=== PATIENT | male | born 1970 | race Caucasian/White ===

== ENCOUNTER 2020-10-11 06:53 | Inpatient (IN) | payer BC ==
[2020-10-11] MEDS ORDERED: ASPIRIN 81 MG PO STA (07:11)
[2020-10-11] MEDS ORDERED: NITROGLYCERIN SL TABS 0.4 MG TAB SUBLINGUAL STA (07:15)
--- NOTE | 2020-10-11 07:17 | ED ---
General Adult HPI - General Source: patient Mode of arrival: wheelchair Limitations: no limitations <Jamarcus Castro - Last Filed: 10/11/20 07:26> <Alfreda Rodgers - Last Filed: 10/11/20 07:38> - General Chief complaint: Chest Pain Stated complaint: Chest Pain Time Seen by Provider: 10/11/20 07:05 - History of Present Illness Initial comments: Patient is a 50-year-old male presenting to emergency Department with complaints of chest pain that started this morning. He states it woke him out of sleep about 4-5am. States he lost his taste and smell last week, recent diagnosis of Covid. Denies any shortness of breath. Describes the pain as in the left side of his chest, nonradiating. He doesn't history of a cardiac stent. No nausea or vomiting, no abdominal pain. No recent fevers. He has no further complaints at this time. Slightly hypertensive on arrival at 163/85, rest of vitals normal. (Alfreda Rodgers) - Related Data Allergies Allergy/AdvReac Type Severity Reaction Status Date / Time No Known Allergies Allergy Verified 10/11/20 06:59 Review of Systems ROS Other: All systems not noted in ROS Statement are negative. <Jamarcus Castro - Last Filed: 10/11/20 07:26> ROS Other: All systems not noted in ROS Statement are negative. <Alfreda Rodgers - Last Filed: 10/11/20 07:38> ROS Statement: Those systems with pertinent positive or pertinent negative responses have been documented in the HPI. Past Medical History Past Medical History: No Reported History History of Any Multi-Drug Resistant Organisms: None Reported Past Surgical History: Heart Catheterization With Stent Past Psychological History: No Psychological Hx Reported Smoking Status: Never smoker Past Alcohol Use History: Occasional Past Drug Use History: None Reported <Jamarcus Castro - Last Filed: 10/11/20 07:26> General Exam Limitations: no limitations General appearance: alert Respiratory exam: Present: normal lung sounds bilaterally. Absent: chest wall tenderness Cardiovascular Exam: Present: regular rate, normal rhythm, normal heart sounds Expanded Peripheral pulses: 2+: Radial (R), Radial (L), Dorsalis Pedis (R), Dorsalis Pedis (L) Extremities exam: Absent: calf tenderness <Jamarcus Castro - Last Filed: 10/11/20 07:26> <Alfreda Rodgers - Last Filed: 10/11/20 07:38> - General Exam Comments Initial Comments: GENERAL: Patient is well-developed and well-nourished. Patient is nontoxic and in mild distress. HEAD: Atraumatic, normocephalic. EYES: Pupils equal round and reactive to light, extraocular movements intact, sclera anicteric, conjunctiva are normal. Eyelids were unremarkable. ENT: Nares patent, oropharynx clear without exudates. Moist mucous membranes. NECK: Normal range of motion, supple without lymphadenopathy or JVD. LUNGS: Unlabored respirations. Breath sounds clear to auscultation bilaterally and equal. No wheezes rales or rhonchi. HEART: Regular rate and rhythm without murmurs, rubs or gallops. ABDOMEN: Soft, nontender, normoactive bowel sounds. No guarding, no rebound. No masses appreciated. : Deferred MUSCULOSKELETAL: Normal extremities with adequate strength and normal range of motion, no pitting or edema. No clubbing or cyanosis. NEUROLOGICAL: Patient is alert and oriented x 3. Normal speech, normal gait. PSYCH: Normal mood, normal affect. SKIN: Warm, Dry, normal turgor, no rashes or lesions noted. (Alfreda Rodgers) Course <Jamarcus Castro - Last Filed: 10/11/20 07:26> Vital Signs 10/11/20 06:55 Temperature 98 F Pulse Rate 61 Respiratory 20 Rate Blood Pressure 163/85 O2 Sat by Pulse 100 Oximetry - Reevaluation(s) Reevaluation #1: 10/11/20 07:17 Case was discussed with Dr. Gonsalves who wants patient to go to the [facility]. Second EKG shows normal sinus rhythm with rate of 68. MI 136. QRS 90. QT 414. QTC 440. Normal axis. ST elevation. With depression aVL and V6. 10/11/20 07:27 Chest x-ray reviewed. Patient is gone to [facility] prior to heparin order. Dr. Bird has been paged for admission. (Jamarcus Castro) EKG Findings - EKG Comments: EKG Findings:: Normal sinus rhythm with rate of 66. MI 146. QRS 92. QT 410. QTc 429. Normal axis. Normal QRS. ST elevation in inferior. Some ST depression in aVL and V6. <Jamarcus Castro - Last Filed: 10/11/20 07:26> Medical Decision Making - Lab Data Result diagrams: 10/11/20 07:15 <Jamarcus Castro - Last Filed: 10/11/20 07:26> - Lab Data Result diagrams: 10/11/20 07:15 10/11/20 07:15 <lAfreda Rodgers - Last Filed: 10/11/20 07:38> - Medical Decision Making Patient is a 50-year-old male presenting with non-awaiting chest pain awoke him sleep about 2 hours prior to arrival. Does have a recent diagnosis of Covid. He was slightly hypertensive on arrival, no fevers. EKG showing ST segment elevation. STEMI alert was called. Patient went straight to cathodic protection technician. Case discussed in detail with Dr. Castro. (Alfreda Rodgers) - Lab Data Lab Results 10/11/20 10/11/20 10/11/20 Range/Units 07:15 07:15 07:15 WBC 10.5 (3.8-10.6) k/uL RBC 4.86 (4.30-5.90) m/uL Hgb 15.4 (13.0-17.5) gm/dL Hct 43.9 (39.0-53.0) % MCV 90.4 (80.0-100.0) fL MCH 31.7 (25.0-35.0) pg MCHC 35.1 (31.0-37.0) g/dL RDW 11.4 L (11.5-15.5) % Plt Count 408 (150-450) k/uL MPV 7.8 Neutrophils % 63 % Lymphocytes % 22 % Monocytes % 10 % Eosinophils % 2 % Basophils % 1 % Neutrophils # 6.6 (1.3-7.7) k/uL Lymphocytes # 2.3 (1.0-4.8) k/uL Monocytes # 1.1 H (0-1.0) k/uL Eosinophils # 0.2 (0-0.7) k/uL Basophils # 0.1 (0-0.2) k/uL PT 10.4 (9.0-12.0) sec INR 1.0 (<1.2) APTT 23.4 (22.0-30.0) sec Sodium 142 (137-145) mmol/L Potassium 3.8 (3.5-5.1) mmol/L Chloride 104 (98-107) mmol/L Carbon Dioxide 27 (22-30) mmol/L Anion Gap 11 mmol/L BUN 15 (9-20) mg/dL Creatinine 1.12 (0.66-1.25) mg/dL Est GFR (CKD-EPI)AfAm 88 (>60 ml/min/1.73 sqM) Est GFR (CKD-EPI)NonAf 77 (>60 ml/min/1.73 sqM) Glucose 141 H (74-99) mg/dL Calcium 9.5 (8.4-10.2) mg/dL Magnesium 1.9 (1.6-2.3) mg/dL Total Bilirubin 0.8 (0.2-1.3) mg/dL AST 31 (17-59) U/L ALT 23 (4-49) U/L Alkaline Phosphatase 91 (38-126) U/L Total Protein 7.6 (6.3-8.2) g/dL Albumin 4.6 (3.5-5.0) g/dL Critical Care Time Critical Care Time: Yes Total Critical Care Time: 20 (Patient presented with chest pain that woke her f rom sleep, EKG showed acute ST segment elevation. STEMI was called, patient was taken straight to cathodic protection technician.) <Alfreda Rodgers - Last Filed: 10/11/20 07:38> Disposition <Jamarcus Castro - Last Filed: 10/11/20 07:26> Decision Date: 10/11/20 Decision Time: 07:36 <Alfreda Rodgers - Last Filed: 10/11/20 07:38> Clinical Impression: ST elevation myocardial infarction (STEMI) Disposition: ADMITTED IP TO THIS HOSP Condition: Stable
[2020-10-11 07:25] LABS: Basophils # (A) 0.1 k/uL (0-0.2); Basophils % (A) 1 %; Eosinophils # (A) 0.2 k/uL (0-0.7); Eosinophils % (A) 2 %; HCT 43.9 % (39.0-53.0); HGB 15.4 gm/dL (13.0-17.5); Lymphocytes # (A) 2.3 k/uL (1.0-4.8); Lymphocytes % (A) 22 %; MCH 31.7 pg (25.0-35.0); MCHC 35.1 g/dL (31.0-37.0); MCV 90.4 fL (80.0-100.0); Mean Platelet Volume 7.8; Monocytes # (A) 1.1 k/uL (0-1.0); Monocytes % (A) 10 %; Neutrophils # (A) 6.6 k/uL (1.3-7.7); Neutrophils % (A) 63 %; Platelet Count 408 k/uL (150-450); RBC 4.86 m/uL (4.30-5.90); RDW 11.4 % (11.5-15.5); WBC 10.5 k/uL (3.8-10.6)
[2020-10-11] MEDS ORDERED: HEPARIN SODIUM 1,000 UN/ML (10ML VL) IV ONE (07:28)
[2020-10-11] MEDS ORDERED: HEPARIN SODIUM 1,000 UN/ML (10ML VL) IV PRN (07:28)
[2020-10-11] MEDS ORDERED: HEPARIN SOD,PORK IN 0.45% NACL 25,000 UNIT in 0.45% NACL 1 250ML.BAG IV SCH (07:30)
[2020-10-11] MEDS ORDERED: SODIUM CHLORIDE 0.9% 1,000 ML IV ONE (07:30)
[2020-10-11 07:33] LABS: Albumin 4.6 g/dL (3.5-5.0); Calcium 9.5 mg/dL (8.4-10.2); Magnesium 1.9 mg/dL (1.6-2.3); Potassium 3.8 mmol/L (3.5-5.1); Total Bilirubin 0.8 mg/dL (0.2-1.3); Total Protein 7.6 g/dL (6.3-8.2)
[2020-10-11 07:34] LABS: Partial Thromboplastin Time 23.4 sec (22.0-30.0); Prothrombin Time 10.4 sec (9.0-12.0)
[2020-10-11] MEDS ORDERED: fentaNYL (PF) 50 MCG/ML 2 ML AMP IV ONE (07:36)
[2020-10-11] MEDS: MIDAZOLAM 2 MG/2 ML VIAL IV ONE ×2 (07:40→07:47)
[2020-10-11] MEDS ORDERED: LIDOCAINE 1% INJ 10MG/ML (20 ML MDV) SQ ONE (07:40)
--- NOTE | 2020-10-11 07:52 | XR ---
EXAMINATION TYPE: XR chest 1V portable DATE OF EXAM: 10/11/2020 COMPARISON: NONE HISTORY: Chest pain TECHNIQUE: Single frontal view of the chest is obtained. FINDINGS: There is no focal air space opacity, pleural effusion, or pneumothorax seen. The cardiac silhouette size is within normal limits. The osseous structures are intact. IMPRESSION: No acute process.
[2020-10-11] MEDS ORDERED: TICAGRELOR 90 MG TAB PO ONE (07:57)
[2020-10-11] MEDS ORDERED: IOPAMIDOL-370 125ML BTL INJ ONE (08:15)
[2020-10-11] MEDS ORDERED: IOPAMIDOL-370 100ML BTL INJ ONE ×2 (08:44→09:09)
[2020-10-11 09:31] LABS: Glucose,Whole Blood 119 mg/dL (75-99)
[2020-10-11] MEDS ORDERED: RX INFO: IV CONTRAST WAS GIVEN 1 EACH MISC MISCELLANE PRN (09:32)
[2020-10-11] MEDS ORDERED: MAG HYDROX/AL HYDROX/SIMETH 30 ML CUP PO PRN (09:32)
[2020-10-11] MEDS ORDERED: NITROGLYCERIN SL TABS 0.4 MG TAB SUBLINGUAL PRN (09:32)
[2020-10-11] MEDS ORDERED: ZOLPIDEM 5 MG TAB PO PRN (09:32)
[2020-10-11] MEDS ORDERED: ATROPINE SULFATE 0.1 MG/ML 10ML SYRINGE IV PRN (09:32)
[2020-10-11] MEDS ORDERED: SODIUM CHLORIDE 0.9% 1,000 ML IV SCH (09:45)
[2020-10-11 11:27] VITALS: BMI 21.6
--- NOTE | 2020-10-11 14:01 | CONS ---
CONSULTATION Mr. Rosales is a 50-year-old male with a known history of coronary artery disease status post percutaneous revascularization done at [facility] in 2013 who presented with symptoms of chest discomfort and evidence of ST-segment elevation involving the inferior wall. In view of that, Cardiology consultation was requested. The patient has no recent episode of chest discomfort until the last few days until this morning when he had the episode of severe chest discomfort, he was dyspneic with it. He denies any dizziness or palpitation. According to him, he has done reasonably well since his intervention in 2013 and has not seen his career center director recently. He is reasonably active physically without any symptoms. He has a history of hypertension. He is a nonsmoker. His lipid profile is not available to me. He was diagnosed with Covid 19 infection recently according to him and has not taking any medication recently. He cannot recall the names of medication he was supposed to be taking at home. REVIEW OF SYSTEMS: RESPIRATORY system: He has no history of documented asthma, emphysema or bronchitis. GI system: No recent GI bleeding. No peptic ulcer disease. system: No dysuria or hematuria. NERVOUS SYSTEM: No history of stroke or seizure. SOCIAL HISTORY: Patient is nonsmoker. He drinks alcohol socially according to him. PHYSICAL EXAMINATION: He is a 50-year-old male, alert, oriented, in no apparent distress. Blood pressure running in the 140s-160s with a heart rate in the 70s. HEAD: Normocephalic. Eyes sclerae anicteric. NECK: Good upstroke. No bruit. No jugular venous distention. LUNGS: Clear to auscultation. HEART: Regular rate and rhythm S1, S2. No S3. No S4. No murmur or rub. ABDOMEN: Soft, nontender, positive bowel sounds. No megaly. EXTREMITIES: No edema. Intact distal pulses. LAB DATA: Lab data revealed a hemoglobin of 15.4, BUN and creatinine 15 and 1.12. Potassium 3.8. Troponin 0.030. His EKG is consistent with an acute inferior myocardial infarction. IMPRESSION: 1. Acute inferior wall myocardial infarction. Patient with known history of coronary artery disease. 2. History of hypertension. 3. Prior stenting in 2013. 4. Recent infection with Covid 19. RECOMMENDATIONS: I have recommended proceeding with coronary angiography. The procedure as well as the risks and the complications were discussed with the patient who is in full understanding and agreement. Thank you for this consult. We will follow with you. MMODL / IJN: [id number] /
--- NOTE | 2020-10-11 14:04 | PTCA ---
PERCUTANEOUSTRANS CORORONARY ANGIOGRAPHY Mr. Rosales is a 50-year-old male with known history of coronary artery disease, who presented to the emergency room with an acute inferior myocardial infarction. In view of that, recommendation was made regarding cardiac catheterization. The procedure as well as the risks and the complications were discussed with the patient who is in full understanding and agreement. PROCEDURE: Patient was brought to labor employment associate in a fasting semi-sedated state after receiving fentanyl and Benadryl and achieving moderate conscious sedated state. Using Xylocaine anesthesia and Seldinger technique, a 6-Jamaican sheath was introduced in the right radial artery. Right coronary angiography performed using a 6-Jamaican FR4 guiding catheter. After cannulating the right coronary ostium, a 0.014 balanced medium weight J-wire with a super cross straight catheter were used to cross the total occlusion and position the wire distally. Subsequently, the microcatheter was removed and a 2.5 x 12 mm Trek balloon was advanced and 2 inflations at a maximum of 8 atmospheres were done. Following that, the balloon was removed and a 2.75 x 28 mm Xience Cristine stent was advanced, deployed and was dilated at 16 atmospheres. Following that, the balloon was removed and attempts to advance a 3.0 x 23 mm Xience Cristine stent proximal to the first stent were unsuccessful. At that point, the stent was removed and another 0.014 balanced medium weight J-wire was advanced next to the first one in a cal fashion and the 2.5 x 12 mm Trek balloon was advanced and inflations were done at the junction at maximum of 8 atmospheres. Following that, the balloon was removed and then the 3.0 x 23 mm Xience Cristine stent was advanced, deployed and was dilated at 16 atmospheres. Following that, a 3.0 x 15 mm NC Trek balloon was advanced and multiple inflations throughout the vessel to the stented segment were done at maximum of 12 atmospheres. Following that, the balloon was removed and a 3.0 x 18 mm Xience Cristine stent was deployed distal to the first stent and was dilated at 16 atmospheres. After the inflation, an inflation in the overlap segment was done at 16 atmospheres. Following that, the balloon was removed and a 3.0 x 15 mm Xience Cristine stent was deployed in the proximal segment and postdilated at 16 atmospheres. After the last inflation, after appropriate wait the balloon and the guidewire were withdrawn back in the guiding catheter. Images were obtained and repeated. Those images reveal stable successful stenting. At that point, the guiding catheter, the balloon and the guidewire guide were removed. Images of the left coronary system were performed. Of note, the patient received a total of 8000 units of intravenous heparin throughout the procedure. His ACT was followed. He also received intra-arterial verapamil. He was pain-free at the end procedure with resolution of the chest discomfort. RESULTS: Successful stenting of the mid right coronary artery with reduction of stenosis from 100% to 0%. RECOMMENDATIONS: Patient will be continued on aspirin, Brilinta, beta werner, PANTERA inhibitor, statin. The importance of dual antiplatelet treatment were discussed with the patient who is in full understanding and agreement. Duration of sedation is 85 minutes. ADALBERTO / SHABBIR: [id number] /
--- NOTE | 2020-10-11 14:12 | CC ---
CARDIAC CATHETERIZATION REPORT Mr. Rosales is a 50-year-old male who presented with an acute inferior myocardial infarction, in view of that, recommendation was made regarding cardiac catheterization. The procedure as well as the risks and the complications were discussed with the patient who is in full understanding and agreement. PROCEDURE: Patient was brought to hoisting laborer in the fasting semi-sedated state. He received fentanyl and Benadryl and after achieving moderate conscious sedated state, using Xylocaine anesthesia and Seldinger technique, a 6-Hong Konger sheath was introduced in the right coronary artery. Images of the right coronary artery were performed using a 6- [place] Konger FR4 guiding catheter. After performing angioplasty and stenting of the right coronary artery a 5-Hong Konger 3 and half bend left Emma catheter was introduced in the system and images of the left system were performed. Following that, a 5-Hong Konger tight pigtail catheter introduced into the left ventricle and pressures were calculated. Following that, catheter and sheath were removed. Hemostasis was obtained with deployment TR band. There was no immediate complication. Patient was returned to his room in stable condition. FINDINGS: LEFT MAIN: This is a large-sized vessel, bifurcating into left circumflex, left anterior descending artery, left main coronary artery has no evidence of high-grade stenosis. LEFT ANTERIOR DESCENDING ARTERY: This is a large-sized vessel reaching towards the apex with a wraparound the apex segment giving rise to a moderately sized diagonal branch in mid segment. The left anterior descending artery has mild intimal disease of 10-20 percent without any evidence of high-grade stenosis. There is a stented segment in the mid LAD that has no evidence of in stent restenosis. LEFT CIRCUMFLEX: This is a nondominant vessel giving rise to a large obtuse marginal branch. It appears that there is a stent in the obtuse marginal branch that is patent with no significant in-stent restenosis. Distal to the stent there is a 50% plaque. There is another 20 to 30% plaque in the proximal left circumflex without any evidence of high-grade stenosis. RIGHT CORONARY ARTERY: This is a large vessel, totally occluded at the takeoff of the acute marginal branch. There is no antegrade flow and there is intimal disease of 60- 70 percent proximal to the acute marginal branch. LEFT VENTRICULOGRAM: Not performed. HEMODYNAMICS: There was no gradient across the aortic valve. The left ventricular end-diastolic pressure was 20-22 mmHg. CONCLUSION: 1. Acutely occluded right coronary artery. 2. Patent stent in the LAD and the left circumflex with mild to moderate disease in both vessels. 3. Elevated left ventricular end-diastolic pressure. RECOMMENDATIONS: In view of findings and anatomy, I recommend proceeding with angioplasty and stenting. The procedure as well as the risks and the complications were discussed with the patient who is in full understanding and agreement. ADALBERTO / SHABBIR: [id number] /
[2020-10-11 17:11] LABS: Chol/HDL Ratio 8.75; LDL Cholesterol,Calculated 127.6 mg/dL (0.0-131.0); VLDL Calculation 27.4 mg/dL (5.00-40.00)
--- NOTE | 2020-10-11 18:00 | ECHOF ---
Referral Reason:mi MEASUREMENTS -------- HEIGHT: 165.1 cm WEIGHT: 59.0 kg BP: RVIDd: 2.4 cm (< 3.3) IVSd: 1.1 cm (0.6 - 1.1) LVIDd: 3.9 cm (3.9 - 5.3) LVPWd: 1.2 cm (0.6 - 1.1) IVSs: 1.4 cm LVIDs: 3.1 cm LVPWs: 1.1 cm Ao Diam: 2.8 cm (2.0 - 3.7) AV Cusp: 1.2 cm (1.5 - 2.6) LA Diam: 3.1 cm (2.7 - 3.8) MV EXCURSION: 17.282 mm (> 18.000) MV EF SLOPE: 86 mm/s (70 - 150) EPSS: 0.6 cm MV E Niko: 1.04 m/s MV DecT: 133 ms MV A Niko: 0.60 m/s MV E/A Ratio: 1.73 RAP: 5.00 mmHg RVSP: 9.86 mmHg FINDINGS -------- Sinus rhythm. Pt is Covid positive. This was a technically good study. The left ventricular size is normal. Overall left ventricular systolic function is mildly impaired with, an EF between 45 - 50 %. Basal inferoseptal LV wall motion is normal. The right ventricle is normal in size. The left atrial size is normal. The right atrial size is normal. There is mild aortic regurgitation. Mild mitral annular calcification present. Mild mitral regurgitation is present. Mild tricuspid regurgitation present. Right ventricular systolic pressure is normal at < 35 mmHg. There is no pulmonic regurgitation present. Echo free space represents a pericardial fat pad. CONCLUSIONS -------- 1. Pt is Covid positive. 2. The left ventricular size is normal. 3. Overall left ventricular systolic function is mildly impaired with, an EF between 45 - 50 %. 4. Basal inferoseptal LV wall motion is normal. 5. The right ventricle is normal in size. 6. The left atrial size is normal. 7. The right atrial size is normal. 8. There is mild aortic regurgitation. 9. Mild mitral annular calcification present. 10. Mild mitral regurgitation is present. 11. Mild tricuspid regurgitation present. 12. Echo free space represents a pericardial fat pad. CHARGE GANG WEIGHER: Yuly Restrepo RDCS
[2020-10-11] MEDS: METOPROLOL TARTRATE 25 MG TAB PO SCH (20:18)
[2020-10-11] MEDS: ATORVASTATIN 80 MG TAB PO SCH (20:19)
[2020-10-11] MEDS: TICAGRELOR 90 MG TAB PO SCH (20:19)
[2020-10-12 03:59] LABS: Basophils # (A) 0.1 k/uL (0-0.2); Basophils % (A) 1 %; Eosinophils # (A) 0.1 k/uL (0-0.7); Eosinophils % (A) 1 %; HCT 40.2 % (39.0-53.0); HGB 13.5 gm/dL (13.0-17.5); Lymphocytes # (A) 2.5 k/uL (1.0-4.8); Lymphocytes % (A) 22 %; MCH 31.4 pg (25.0-35.0); MCHC 33.7 g/dL (31.0-37.0); MCV 93.3 fL (80.0-100.0); Mean Platelet Volume 7.6; Monocytes # (A) 1.6 k/uL (0-1.0); Monocytes % (A) 13 %; Neutrophils # (A) 7.2 k/uL (1.3-7.7); Neutrophils % (A) 62 %; Platelet Count 385 k/uL (150-450); RBC 4.31 m/uL (4.30-5.90); RDW 11.6 % (11.5-15.5); WBC 11.6 k/uL (3.8-10.6)
[2020-10-12 04:13] LABS: Prothrombin Time 10.4 sec (9.0-12.0)
[2020-10-12 04:18] LABS: African American GFR (CKD) >90 (>60 ml/min/1.73 sqM); Anion Gap 7 mmol/L; Blood Urea Nitrogen 10 mg/dL (9-20); Calcium 9.1 mg/dL (8.4-10.2); Carbon Dioxide 27 mmol/L (22-30); Chloride 107 mmol/L (98-107); Glucose 112 mg/dL (74-99); Non-African American GFR(CKD) >90 (>60 ml/min/1.73 sqM); Potassium 4.2 mmol/L (3.5-5.1); Sodium 141 mmol/L (137-145)
[2020-10-12] MEDS: TICAGRELOR 90 MG TAB PO SCH ×2 (07:29→20:22)
[2020-10-12] MEDS: ASPIRIN 81 MG PO SCH (07:29)
[2020-10-12] MEDS: METOPROLOL TARTRATE 25 MG TAB PO SCH ×2 (07:29→20:22)
--- NOTE | 2020-10-12 07:52 | PN ---
PROGRESS NOTE BLANK MMODL / IJN: [id number] /
[2020-10-12] MEDS ORDERED: lisinopriL 5 MG TAB PO SCH (09:00)
--- NOTE | 2020-10-12 09:12 | PN ---
PROGRESS NOTE Mr. Rosales is a 50-year-old male with prior history of coronary artery disease status post stenting of left circumflex obtuse marginal branch in 2015, who presented with an acute inferior myocardial infarction, underwent cardiac catheterization was found to have a totally occluded mid RCA. He underwent stenting of that vessel. He is doing well this morning. His breathing is stable. He continues to be in sinus mechanism. He has no dizziness. No palpitation. No PND. No orthopnea. He was found to be Covid 19 positive. He continues to be at this time on aspirin once a day, Brilinta 90 mg twice a day, Lipitor 80 mg daily, lisinopril 5 mg daily, metoprolol tartrate 25 mg twice a day. PHYSICAL EXAMINATION: Blood pressure running in the 100 with a heart rate in 50s. Lungs: Clear. Heart: Regular rhythm S1, S2. No S3. No rub. Abdomen: Soft and nontender. Extremities: No edema. Right radial pulse intact. LAB DATA: Cholesterol 175, LDL of 127. His troponin is up to 65. BUN and creatinine of 10 and 0.92. Hemoglobin of 13.5. Echocardiogram showed a mildly impaired left ventricular systolic function with basal inferoseptal wall hypokinesis. Ejection fraction was estimated at 45% to 50% with mild mitral and tricuspid regurgitation. IMPRESSION: 1. Status post inferior myocardial infarction and stenting of the RCA. 2. History of stenting of the obtuse marginal branch. 3. Hyperlipidemia. 4. History of hypertension. RECOMMENDATIONS: Patient's activity will be increased. He will be transferred to telemetry floor. If he remains stable, I would expect he should be able to be discharged home in the next 24 hours. MMODL / IJN: [id number] /
[2020-10-12] MEDS: ATORVASTATIN 80 MG TAB PO SCH (20:22)
[2020-10-13 04:31] VITALS: BP 95/58; RESP 18
[2020-10-13 04:41] LABS: African American GFR (CKD) >90 (>60 ml/min/1.73 sqM); Anion Gap 7 mmol/L; Blood Urea Nitrogen 16 mg/dL (9-20); Calcium 9.1 mg/dL (8.4-10.2); Carbon Dioxide 27 mmol/L (22-30); Chloride 106 mmol/L (98-107); Glucose 100 mg/dL (74-99); Non-African American GFR(CKD) 81 (>60 ml/min/1.73 sqM); Potassium 4.6 mmol/L (3.5-5.1); Sodium 140 mmol/L (137-145)
--- NOTE | 2020-10-13 07:39 | P.HPIM ---
History of Present Illness H&P Date: 10/11/20 Chief Complaint: Chest pain Thony Rosales is a 50 yo M with PMH of CAD s/p PCI, recent COVID infection who presented to the ED complaining of chest pain. On presentation he was found to have STEMI with initial troponin of 30. He was taken to the clinical genetics laboratory chief and found to have 100% blockage of RCA which was successfully stented. Subsequent echocardiogram showing LVEF 45-50% with inferior septal hypokinesis. Today pt with significant improvement, hemodynamically stable and denies chest pain or shortness of breath. Review of Systems All systems: negative Constitutional: Reports malaise, Denies chills, Denies fever Eyes: denies blurred vision, denies pain Ears, nose, mouth and throat: Denies headache, Denies sore throat Cardiovascular: Reports chest pain, Reports shortness of breath Respiratory: Denies cough Gastrointestinal: Denies abdominal pain, Denies diarrhea, Denies nausea, Denies vomiting Musculoskeletal: Denies myalgias Integumentary: Denies pruritus, Denies rash Neurological: Denies numbness, Denies weakness Psychiatric: Denies anxiety, Denies depression Endocrine: Denies fatigue, Denies weight change Past Medical History Past Medical History: Coronary Artery Disease (CAD), Chest Pain / Angina, GERD/R eflux, Hyperlipidemia, Hypertension, Myocardial Infarction (MT), Osteoarthritis (OA) Additional Past Medical History / Comment(s): Heart Catherization with LAD x 1 Stent (2013) Last Myocardial Infarction Date:: 2013 History of Any Multi-Drug Resistant Organisms: None Reported Past Surgical History: Heart Catheterization With Stent, Orthopedic Surgery, Tonsillectomy Additional Past Surgical History / Comment(s): Bilateral Knee surgeries r/t sports Past Anesthesia/Blood Transfusion Reactions: No Reported Reaction Date of Last Stent Placement:: 2013 Past Psychological History: No Psychological Hx Reported Smoking Status: Never smoker Past Alcohol Use History: Occasional Additional Past Alcohol Use History / Comment(s): Drinks socially on weekends Past Drug Use History: None Reported - Past Family History Mother History Unknown: Yes Family Medical History: AFIB, Coronary Artery Disease (CAD), CVA/TIA, Hyperlip idemia, Hypertension Father History Unknown: Yes Family Medical History: No Reported History Medications and Allergies Home Medications Medication Instructions Recorded Confirmed Type [id number]-Bgjr-[id number] [id number] 1 tab PO ONCE PRN 07/19/21 07/19/21 History [Excedrin] Ticagrelor [Brilinta] 90 mg PO BID 90 Days #180 tab 10/12/20 Rx Allergies Allergy/AdvReac Type Severity Reaction Status Date / Time fresh water fish Allergy Anaphylaxis Uncoded 10/11/20 09:44 Physical Exam Vitals: Vital Signs Temp Pulse Resp BP Pulse Ox 10/12/20 08:00 99.1 F 70 15 100/65 95 10/12/20 07:00 59 L 15 96/66 93 L 10/12/20 06:00 51 L 18 115/67 95 10/12/20 05:00 61 16 105/63 94 L 10/12/20 04:00 99.0 F 56 L 16 110/66 94 L 10/12/20 03:00 50 L 12 104/64 96 10/12/20 02:00 54 L 99/61 94 L 10/12/20 01:00 53 L 15 98/57 10/12/20 00:03 54 L 11 L 98/57 94 L 10/12/20 00:00 99.4 F 51 L 16 109/63 95 10/11/20 23:52 19 10/11/20 23:00 55 L 19 112/59 95 10/11/20 22:00 56 L 12 108/62 95 10/11/20 21:00 57 L 23 116/78 96 10/11/20 20:00 98.4 F 60 16 113/70 96 10/11/20 19:00 64 18 126/73 94 L 10/11/20 18:00 57 L 9 L 122/76 95 10/11/20 17:00 54 L 24 135/81 96 10/11/20 16:00 98.1 F 53 L 13 122/80 96 10/11/20 15:00 56 L 15 142/84 96 10/11/20 14:00 60 10 L 136/87 95 10/11/20 13:30 85 30 H 132/85 95 10/11/20 13:15 61 18 136/83 96 10/11/20 13:00 62 16 127/82 97 10/11/20 12:45 58 L 17 132/78 96 10/11/20 12:30 55 L 18 124/75 97 10/11/20 12:15 64 20 121/71 95 07/19/21 12:00 97.8 F 53 L 14 119/82 97 10/11/20 11:45 60 6 L 124/74 97 10/11/20 11:30 55 L 20 117/71 97 10/11/20 11:18 97.7 F 10/11/20 11:15 56 L 11 L 122/83 96 10/11/20 11:00 55 L 24 106/75 96 10/11/20 10:45 55 L 6 L 117/81 97 10/11/20 10:30 56 L 6 L 114/81 96 10/11/20 10:15 57 L 16 109/78 97 10/11/20 10:00 97.6 F 54 L 13 131/84 96 10/11/20 09:50 74 13 131/84 96 10/11/20 09:40 71 17 125/82 95 10/11/20 09:30 70 17 125/82 97 Intake and Output 10/11/20 10/12/20 10/12/20 22:59 06:59 14:59 Intake Total 340 430 Output Total 0 400 0 Balance 340 30 0 Intake: IV 30 Sodium Chloride 0.9% 1, 30 000 ml @ 75 mls/hr IV . [id number] [facility] Rx#:[id number] Oral 340 400 Output: Urine 0 400 0 Other: # Voids 1 Weight 66.2 kg General: well nourished, well developed, NAD. Vitals reviewed Eyes: PERRL, EOMI, conjunctiva normal HENT: normocephalic, mucus membranes moist Neck: supple, no JVD Lungs: normal respiratory effort, no wheezes or rales CV: Regular rate and rhythm, no murmur. Peripheral pulses 2+ Abdomen: soft, nondistended, no organomegaly Lymph: no cervical or axillary LAD Skin: warm and dry. Neuro: A&Ox3, normal mood and affect Results CBC & Chem 7: 10/12/20 03:45 10/13/20 03:46 Labs: Abnormal Lab Results - Last 24 Hours (Table) 10/11/20 10/11/20 10/11/20 Range/Units 09:29 09:48 09:48 WBC (3.8-10.6) k/uL Monocytes # (0-1.0) k/uL Glucose (74-99) mg/dL POC Glucose (mg/dL) 119 H (75-99) mg/dL Troponin I 30.200 H* (0.000-0.034) ng/mL HDL Cholesterol 20.0 L (40.0-60.0) mg/dL Coronavirus (PCR) (Not Detectd) 10/11/20 10/11/20 10/12/20 Range/Units 10:00 13:17 03:45 WBC 11.6 H (3.8-10.6) k/uL Monocytes # 1.6 H (0-1.0) k/uL Glucose (74-99) mg/dL POC Glucose (mg/dL) (75-99) mg/dL Troponin I 65.300 H* (0.000-0.034) ng/mL HDL Cholesterol (40.0-60.0) mg/dL Coronavirus (PCR) Detected A (Not Detectd) 10/12/20 Range/Units 03:45 WBC (3.8-10.6) k/uL Monocytes # (0-1.0) k/uL Glucose 112 H (74-99) mg/dL POC Glucose (mg/dL) (75-99) mg/dL Troponin I (0.000-0.034) ng/mL HDL Cholesterol (40.0-60.0) mg/dL Coronavirus (PCR) (Not Detectd) Thrombosis Risk Factor Assmnt - Choose All That Apply Any of the Below Risk Factors Present?: Yes Each Factor Represents 1 point: Acute MT, Age 41-60 years, Medical pt on bed rest Other Risk Factors: No Other congenital or acquired thrombophilia - If yes, enter type in comment: No Thrombosis Risk Factor Assessment Total Risk Factor Score: 3 Thrombosis Risk Factor Assessment Level: Moderate Risk Assessment and Plan Plan: 1. STEMI s/p PCI. Pt doing well post procedure. Continue with metoprolol, lipitor, ASA, brillinta. Cardiology following. Increase mobilization
[2020-10-13 08:32] VITALS: PULSE 65; TEMP 98
[2020-10-13] MEDS: TICAGRELOR 90 MG TAB PO SCH (08:40)
[2020-10-13] MEDS: ASPIRIN 81 MG PO SCH (08:40)
[2020-10-13] MEDS: METOPROLOL TARTRATE 25 MG TAB PO SCH (08:40)
--- NOTE | 2020-10-13 09:16 | PN ---
PROGRESS NOTE Mr. Rosales is a 50-year-old male who presented with an acute inferior myocardial infarction, underwent a cardiac catheterization was found to have an acutely occluded right coronary artery. He underwent stenting of that vessel. He is doing well this morning. His breathing is stable. He denies any chest pain. No dizziness. No palpitation. He denies any nausea. He is in sinus mechanism without any evidence of tachy or rico arrhythmia. His echocardiogram revealed a mildly impaired left ventricle systolic function. He is going to be on aspirin once a day, Lipitor 80 mg daily, lisinopril 5 mg daily, metoprolol tartrate 25 mg twice a day, Brilinta 90 mg twice a day. PHYSICAL EXAMINATION: Blood pressure running in the high 90s with a heart rate in 60s. LUNGS: Clear. HEART: Regular rate and rhythm. 1, S2. No S3. No rub. ABDOMEN: Soft nontender. EXTREMITIES: No edema. LAB DATA: Lab data revealed BUN and creatinine 16 and 1.07. IMPRESSION: 1. Status post acute inferior myocardial infarction with stenting of the right coronary artery. 2. Prior stenting of the left circumflex. 3. History of hyperlipidemia. RECOMMENDATION: From the cardiac standpoint, I will decrease the dose of his PANTERA inhibitor to 2.5 mg daily with lisinopril. Increase his activity. He should be able to be discharged home today and follow up as an outpatient with Dr. Diop, his primary regional telecommunications specialist. MMPETERSONL / SHABBIR: [id number] /
--- NOTE | 2020-10-13 12:19 | P.DS ---
Providers Date of admission: 10/11/20 07:18 Expected date of discharge: 10/13/20 Attending physician: Eugene Gannon MD Consults: 10/11/20 09:33 Consult Physician Routine Consulting Provider: [facility] Consult Reason/Comments: Post Interventional patient Do you want consulting provider notified?: Already Contacted Primary care physician: Carmen Sauceda [facility] Course: Final Diagnoses: 1. Acute inferior STEMI s/p PCI. 2. CAD Hospital course:Thony Rosales is a 50 yo M with PMH of CAD s/p PCI, recent COVID infection who presented to the ED complaining of chest pain. On presentation he was found to have STEMI with initial troponin of 30. He was taken to the [facility] and found to have 100% blockage of RCA which was successfully stented. Subsequent echocardiogram showing LVEF 45-50% with inferior septal hypokinesis. Today pt with significant improvement, hemodynamically stable and denies chest pain or shortness of breath. Maintained on metoprolol, lipitor, ASA, brillinta and PANTERA inhibitor. Telemetry sinus rhythm Denies chest pain, palpitations or shortness of breath. Denies lightheadedness, dizziness or focal deficits. Ambulated, tolerating increase in exertion well.Significant clinical improvement. Cleared by cardiology for discharge. Echo reported mildly impaired LV systolic function. Repeat echo in 2 months. Patient will be discharged home in a stable condition with guarded prognosis. The impression and plan of care has been dictated as directed. : I performed a history and examination of this patient, discussed the same with the dictator. I agree with the dictator's note ,documented as a scribe. Any additional findings or plans will be noted. Patient Condition at Discharge: Stable Plan - Discharge Summary Discharge Rx Participant: No New Discharge Prescriptions: New Ticagrelor [Brilinta] 90 mg PO BID 90 Days #180 tab Aspirin EC [Ecotrin Low Dose] 81 mg PO DAILY #30 tablet. Metoprolol Tartrate [Lopressor] 25 mg PO BID #60 tab Nitroglycerin Sl Tabs [Nitrostat] 0.4 mg SUBLINGUAL Q5M PRN #100 tab PRN Reason: Chest Pain lisinopriL [Zestril] 2.5 mg PO DAILY #30 tab Atorvastatin [Lipitor] 80 mg PO HS #30 tab Continue [id number] [Excedrin] 1 tab PO ONCE PRN PRN Reason: Chest Pain Discharge Medication List [id number] [Excedrin] 1 tab PO ONCE PRN 10/11/20 [History] Ticagrelor [Brilinta] 90 mg PO BID 90 Days #180 tab 10/12/20 [Rx] Aspirin EC [Ecotrin Low Dose] 81 mg PO DAILY #30 tablet. 10/13/20 [Rx] Atorvastatin [Lipitor] 80 mg PO HS #30 tab 10/13/20 [Rx] Metoprolol Tartrate [Lopressor] 25 mg PO BID #60 tab 10/13/20 [Rx] Nitroglycerin Sl Tabs [Nitrostat] 0.4 mg SUBLINGUAL Q5M PRN #100 tab 10/13/20 [Rx] lisinopriL [Zestril] 2.5 mg PO DAILY #30 tab 10/13/20 [Rx] Follow up Appointment(s)/Referral(s): Eugene Gannon MD [STAFF PHYSICIAN] - 10/15/20 3:00 pm Vlado Diop MD [REFERRING] - 10/19/20 12:15 pm Ambulatory/Diagnostic Orders: Complete Blood Count w/diff [LAB.AMB] Time Frame: 3 Days, Location: None Selected Patient Instructions/Handouts: Heart Attack (DC), Coronary Intravascular Stent Placement (DC) Discharge Disposition: HOME SELF-CARE
== END 2020-10-13 10:47 | disposition home or self-care (01) | DRG 246 ==
LOC: SUPCPDRO 06:53 → EC 06:53 → 2SICU 07:18
PROVIDERS: ADMIT Family Medicine; ATTEND Family Medicine
PROC: B2111ZZ Fluoroscopy of Multiple Coronary Arteries using Low Osmolar Contrast (ICD-10-PCS; principal; 2020-10-11 08:35)
PROC: 027037Z Dilation of Coronary Artery, One Artery with Four or More Drug-eluting Intraluminal Devices, Percutaneous Approach (ICD-10-PCS; principal; 2020-10-11 08:35)
DX: I21.19 ST elevation (STEMI) myocardial infarction involving other coronary artery of inferior wall (principal); U07.1 COVID-19; I25.10 Atherosclerotic heart disease of native coronary artery without angina pectoris; I25.2 Old myocardial infarction; E78.5 Hyperlipidemia, unspecified; I10 Essential (primary) hypertension; K21.9 Gastro-esophageal reflux disease without esophagitis; M19.90 Unspecified osteoarthritis, unspecified site; Z95.5 Presence of coronary angioplasty implant and graft; Z91.013 Allergy to seafood; Z83.49 Family history of other endocrine, nutritional and metabolic diseases; Z82.49 Family history of ischemic heart disease and other diseases of the circulatory system; Z82.3 Family history of stroke
CPT/HCPCS: 36415; 71045; 80048; 80053; 80061; 83735; 84484; 85025; 85610; 85730; 87635; 93005; 93306; 93458; 99285